=== PATIENT | male | born 1990 | race American Indian/Alaskan Native ===

== ENCOUNTER 2017-03-05 11:48 | Emergency (ER) | payer SELFPAY ==
[2017-03-05] MEDS ORDERED: BOOSTRIX IM ONE (12:13)
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
[2017-03-05 12:31] VITALS: BP 109/64
[2017-03-05] MEDS ORDERED: NACL ONE (12:53)
[2017-03-05 13:04] LABS: Basophils % (Auto) 0.5 % (0.0-1.8); Eosinophils % (Auto) 3.7 % (0.0-4.3); Hematocrit 44.2 % (35.5-45.6); Hemoglobin 14.8 gm/dl (11.8-15.2); Mean Corpuscular HGB Conc 33 % (32-34); Mean Corpuscular Hemoglobin 29 pg (28-32); Mean Corpuscular Volume 87 fl (84-94); Platelet Count 236 K/mm3 (140-440); Red Cell Distribution Width 13.9 % (13.2-15.2); White Blood Count 8.7 K/mm3 (4.5-11.0)
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
[2017-03-05 13:14] LABS: INR 0.95 (0.87-1.13)
[2017-03-05 13:15] LABS: Partial Thromboplastin Time 32.6 Sec. (24.2-36.6)
[2017-03-05 13:29] LABS: Anion Gap 16 mmol/L; Blood Urea Nitrogen 12 mg/dL (9-20); Calcium 9.1 mg/dL (8.4-10.2); Carbon Dioxide 27 mmol/L (22-30); Chloride 99.2 mmol/L (98-107); Glucose 93 mg/dL (75-100); Potassium 3.8 mmol/L (3.6-5.0); Sodium 138 mmol/L (137-145)
[2017-03-05] MEDS ORDERED: TORADOL IV ONE (14:05)
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
== END 2017-03-05 16:30 | disposition home or self-care (01) ==
LOC: ED 11:48
DX: S71.132A Puncture wound without foreign body, left thigh, initial encounter (principal); I10 Essential (primary) hypertension; F17.200 Nicotine dependence, unspecified, uncomplicated; W34.00XA Accidental discharge from unspecified firearms or gun, initial encounter; Y93.9 Activity, unspecified; Y92.9 Unspecified place or not applicable; Y99.9 Unspecified external cause status
CPT/HCPCS: 36415; 73552; 73706; 80048; 85025; 85610; 85730; 90471; 90715; 96374; 99284; J1885; Q9967